=== PATIENT | male | born 1980 | race Caucasian/White ===

== ENCOUNTER 2019-07-02 20:51 | Emergency (ER) | payer OTHER ==
[~2019-07-02] VITALS: Ht 167.6 cm; Wt 93.4 kg
[2019-07-02 21:16] VITALS: Ht 167.6 cm; Wt 93.4 kg
[2019-07-02 23:06] VITALS: BP 150/89
== END 2019-07-02 23:06 | disposition home or self-care (01) ==
LOC: ED 20:51
DX: L03.012 Cellulitis of left finger (principal); X58.XXXA Exposure to other specified factors, initial encounter; Y93.89 Activity, other specified; Y92.89 Other specified places as the place of occurrence of the external cause; Y99.0 Civilian activity done for income or pay
CPT/HCPCS: J2001

== ENCOUNTER 2019-07-03 08:36 | Emergency (ER) | payer OTHER ==
[~2019-07-03] VITALS: Ht 167.6 cm; Wt 93.0 kg
[2019-07-03 08:38] VITALS: Ht 167.6 cm; Wt 93.0 kg
[2019-07-03 10:35] VITALS: BP 131/84
== END 2019-07-03 10:35 | disposition home or self-care (01) ==
LOC: ED 08:36
DX: L03.012 Cellulitis of left finger (principal)
CPT/HCPCS: J0696

== ENCOUNTER 2019-07-05 04:10 | Emergency (ER) | payer OTHER ==
[~2019-07-05] VITALS: Ht 167.6 cm; Wt 93.0 kg
[2019-07-05 04:25] VITALS: Ht 167.6 cm; Wt 93.0 kg
[2019-07-05 06:47] VITALS: BP 151/87
== END 2019-07-05 06:47 | disposition home or self-care (01) ==
LOC: ED 04:10
DX: L03.012 Cellulitis of left finger (principal)
CPT/HCPCS: J2001

== ENCOUNTER 2019-07-09 12:33 | Emergency (ER) | payer OTHER ==
[~2019-07-09] VITALS: Ht 167.6 cm; Wt 91.2 kg
[2019-07-09 12:46] VITALS: Ht 167.6 cm; Wt 91.2 kg
[2019-07-09 13:58] LABS: BASOPHIL % 0.6 % (0-2); PLATELET COUNT 277 x10^3mcL (130-400)
[2019-07-09 14:11] LABS: C REACTIVE PROTEIN 1.6 mg/dL (<=0.9); CALCIUM 8.6 mg/dL (8.5-10.1); CARBON DIOXIDE 29.7 mmol/L (21-32); CHLORIDE SERUM 101 mmol/L (98-107); CREATININE SERUM 0.7 mg/dL (0.7-1.3); GFR1 > 60 mL/min; GLUCOSE SERUM 231 mg/dL (74-106); POTASSIUM SERUM 3.7 mmol/L (3.5-5.1); SODIUM SERUM 139 mmol/L (136-145)
[2019-07-09 14:56] LABS: ERYTHROCYTE SED RATE 65 mm/hr (0-15)
[2019-07-09 16:23] VITALS: BP 152/96
== END 2019-07-09 16:23 | disposition short-term general hospital (02) ==
LOC: ED 12:33
PROVIDERS: Emergency Medicine
DX: L02.512 Cutaneous abscess of left hand (principal); M86.8X2 Other osteomyelitis, upper arm
CPT/HCPCS: J0696; J3370